=== PATIENT | female | born 1970 ===

== ENCOUNTER 2018-02-10 15:22 | Emergency (ER) | payer OTHER ==
[2018-02-10 16:17] VITALS: BP 143/86; PULSE 69; RESP 16; TEMP 97.8; O2SAT 97
--- NOTE | 2018-02-10 17:52 | C.PDOC ---
History Of Present Illness 47 y/o female presents to ED with complaints of left arm "burning" pain for 2 days after doing laundry. Patient states pain is mildly improved with Motrin and denies numbness, weakness, direct injury or any other complaints at this time. Time Seen by Provider: 02/10/18 17:24 Chief Complaint (Nursing): Upper Extremity Problem/Injury History Per: Patient History/Exam Limitations: no limitations Onset/Duration Of Symptoms: Days Current Symptoms Are (Timing): Still Present Quality: Burning Past Medical History Reviewed: Historical Data, Nursing Documentation, Vital Signs Vital Signs: Last Vital Signs Temp 97.8 F 02/10/18 16:14 Pulse 69 02/10/18 16:14 Resp 16 02/10/18 16:14 BP 143/86 02/10/18 16:14 Pulse Ox 97 02/10/18 17:55 - Medical History PMH: No Chronic Diseases Surgical History: No Surg Hx - [facility] Procedures CYSTOSCOPY NEC (01/15/03) RETROGRADE PYELOGRAM (01/15/03) Family History: States: No Known Family Hx - Social History Hx Alcohol Use: No Hx Substance Use: No - Immunization History Hx Influenza Vaccination: No Review Of Systems Gastrointestinal: Negative for: Nausea, Vomiting Musculoskeletal: Positive for: Arm Pain. Negative for: Neck Pain Skin: Negative for: Rash Neurological: Negative for: Weakness, Numbness Physical Exam - Physical Exam Appears: Non-toxic, No Acute Distress Skin: Warm, Dry, No Rash, No Ecchymosis Head: Atraumatic, Normacephalic Eye(s): bilateral: Normal Inspection Oral Mucosa: Moist Neck: Normal ROM, No Paracervical Tenderness Extremity: Tenderness (to left later epicondyle ), No Deformity, No Swelling Extremity: Left: Normal ROM Neurological/Psych: Oriented x3, Normal Speech, Normal Cognition ED Course And Treatment O2 Sat by Pulse Oximetry: 97 (RA) Pulse Ox Interpretation: Normal Medical Decision Making Medical Decision Making: pt reports decreased pain s/p toradol. d/c wuith rob bandage, nsaids and portho Disposition Counseled Patient/Family Regarding: Diagnosis, Need For Followup, Rx Given - Disposition Referrals: Sherrie Urena MD [Staff Provider] - Disposition: HOME/ ROUTINE Disposition Time: 18:14 Condition: IMPROVED Additional Instructions: Please wear rob bandage for comfort. Take naproxen as prescribed. Take tylenol between doses of naproxen if pain returns. Follow up with Dr Nicola Zee ( orthopedics) if pain ersists or worsens. Prescriptions: Naproxen 500 mg PO BID #20 tab Instructions: Tendonitis (DC) Forms: [facility] (Monegasque), General Discharge Instructions - Clinical Impression Clinical Impression: Tendonitis of elbow, left - PA / [employer] / Resident Statement MD/DO has reviewed & agrees with the documentation as recorded. - Scribe Statement The provider has reviewed the documentation as recorded by the Deepakibalysha Bravo All medical record entries made by the Tito were at my direction and personally dictated by me. I have reviewed the chart and agree that the record accurately reflects my personal performance of the history, physical exam, medical decision making, and the department course for this patient. I have also personally directed, reviewed, and agree with the discharge instructions and disposition.
== END 2018-02-10 19:01 | disposition home or self-care (01) ==
LOC: C.ER 15:22
DX: M77.9 Enthesopathy, unspecified (principal)
CPT/HCPCS: 96372; 99284; J1885